=== PATIENT | female | born 1975 | race Caucasian/White ===

== ENCOUNTER 2016-06-29 22:13 | Emergency (ER) | payer MEDICAID, MEDICARE ==
[~2016-06-29 22:13] MED LIST: DIAZ2TAB PO
[2016-06-29 22:19] VITALS: BP 109/70; PULSE 116; RESP 20; O2SAT 94
--- NOTE | 2016-06-29 23:52 | ED.REPORT ---
HPI-URI / Cough / Cold Date of Service Jun 29, 2016 ED Provider: Naren Ferris MD A 40 year old female with a history of seizures, cancer, smoking, and asthma presents to the ED complaining of cough, fever, and joint pain. She has been experiencing these symptoms for two days, and states that "everything hurts." The pt has not received an influenza vaccination this year. Nursing Notes Stated Complaint: COUGH, FEVER Chief Complaint: FLU/Cold Symptoms Nursing Notes Reviewed: Yes Allergies: Coded Allergies: iodine (Verified Allergy, Severe, Anaphylaxis, 06/24/13) aspirin (Verified Allergy, Mild, Hives, 06/24/13) Codfish (Verified Allergy, Unknown, 10/10/14) Uncoded Allergies: "CILLINS" (Allergy, Mild, Rash, 06/21/13) Scheduled PRN Diazepam (Valium) 2 Mg Tablet 2 MG PO TID PRN PRN For Pain General Time Seen by MD: 23:48 Chief Complaint Other (Cough) Hx Obtained From: Patient Arrived By: Walk-in Onset Occurred: 2 days ago Symptom Duration: Since onset Recent Healthcare: Recent doctor visit, Recent hospitalization Similar Sx Previous: No Past Medical History Past Medical History Seizure disorder Epilepsy Bronchitis Various cancers Cervical cancer, Ovarian cancer, 18 years ago Uterine cancer, 8 years ago Reports: Asthma, Stroke Past Surgical History Vagus nerve simulator placement right arm x2 Reports: Hysterectomy, Tonsillectomy Smoking History Current Every Day Smoker Social History Alcohol Use: Denies alcohol use Drug Use: Denies drug use Ambulatory Status Independent Review of Systems Constitutional: Reports: Fever Respiratory: Reports: Prod cough, clear GI: Denies: Abdominal pain Skin: Denies Rash Complete sys rev & neg: except as marked. Cardiovascular: Denies: Chest pain Musculoskeletal: Reports: Joint pain, Denies: Back pain Physical Exam Initial Vital Signs Vital Signs (First) Date Time Temp Pulse Resp B/P Pulse Ox O2 Delivery O2 Flow Rate FiO2 06/29/16 22:19 39.0 116 20 109/70 94 Room Air Initial VS: Reviewed General/Constitutional: Awake, Alert ENT: Atraumatic, Airway patent, Mucous membranes moist, Pharynx NL Respiratory / Chest: Atraumatic, Breath sounds NL, Breath sounds = bilat, No respiratory distress Head / Eyes: Atraumatic, Normocephalic, PERRL, EOMI Neck: Atraumatic, Supple, Full range of motion Cardiovascular: Heart rate NL, Regular rhythm, Heart sounds NL Abdomen: Atraumatic, Soft, Non-tender Skin: Atraumatic, Color NL, No rash, Warm, Dry Neurologic: Oriented X3, Speech NL, No motor deficits, No sensory deficits Back: Atraumatic, Full range of motion Upper Extremity / MS: Atraumatic, Full range of motion Lower Extremity / Pelvis / MS: Atraumatic, Full range of motion Psychiatric: Affect NL, Mood NL Interpretation & Diagnostics Lab Results Interpretation Test 06/30/16 00:00 Hold Urine Received (Received) Lab Results Interpretation: Influenza A positive Re-Eval/Medical Decision Med Decision/Clinical Course 40-year-old female with multiple day history of influenza-like symptoms found to be influenza A+. She is dehydrated and was given IV fluids. There is no evidence of pneumonia or other serious bacterial illness. Preventative medication was recommended for her 9-month-old contact. Source of Hx: Old records Re-Evaluation/Progress : Time of Eval: 02:59 Patient Status: Condition improved Re-Evaluation/Progress Note: Pt rechecked, who is resting. She is informed of her lab results, diagnosis, and the plan for discharge. The pt understands and agrees with the plan. All questions are addressed at this time. Counseled Regarding: Diagnosis, Need for follow-up, When/why to return to ED Discharge & Departure Impression: Primary Impression: Influenza due to influenza A virus Disposition: Home Discharge Condition All VS Reviewed: Yes Condition: Stable Patient Instructions: Influenza (ED) Additional Instructions: Your symptoms are due to influenza a. Recommend that the 9-month-old grandson gets preventively treated by his pan reclaim processor so he does not get it. Tamiflu antiviral medication, only works if given within the first 24 hours of the illness. Influenza last 7-10 days. Get plenty of rest, drink plenty of fluids. Take Tylenol and/or ibuprofen as needed for aches and pains. Referrals: Marcela Dela Cruz (PCP) Scribe Attestation Portions of this note were transcribed by Marlee Knight. I, Dr. Ferris personally performed the history, physical exam and medical decision-making; I reviewed and confirmed the accuracy of the information in the transcribed note. Signed by: Dieudonne Pedroza, 06/30/2016 and 03:01. copies to: Marcela Dela Cruz Howard L MD Jun 29, 2016 23:52 MARLEE KNIGHT Jun 30, 2016 00:15
[2016-06-30 03:17] VITALS: BP 85/54; PULSE 99; RESP 18; O2SAT 93
== END 2016-06-30 03:18 | disposition home or self-care (01) ==
LOC: SED 22:13
DX: J11.89 Influenza due to unidentified influenza virus with other manifestations (principal); R50.9 Fever, unspecified; J45.909 Unspecified asthma, uncomplicated; F17.200 Nicotine dependence, unspecified, uncomplicated; Z85.43 Personal history of malignant neoplasm of ovary; Z85.42 Personal history of malignant neoplasm of other parts of uterus; Z86.73 Personal history of transient ischemic attack (TIA), and cerebral infarction without residual deficits; Z88.6 Allergy status to analgesic agent; Z91.013 Allergy to seafood

== ENCOUNTER 2016-07-25 11:49 | Emergency (ER) | payer MEDICAID, MEDICARE ==
[~2016-07-25] VITALS: Ht 162.6 cm; Wt 59.1 kg
[2016-07-25 11:52] VITALS: BP 131/88; PULSE 80; RESP 16; O2SAT 98
[2016-07-25] MEDS ORDERED: 0.9% Sodium Chloride 1,000 ML IV ONE (12:18)
--- NOTE | 2016-07-25 12:18 | ED.REPORT ---
HPI-General Illness Date of Service Jul 25, 2016 ED Provider: Richmond Simpson MD Pt is a 41 y/o female w/ a hx of seizure disorder, CVA with residual R sided deficits, vagus nerve stimulator placement, previous ovarian and uterine CA s/p treatment presenting to the ED c/o worsening dizziness and nausea onset 1 week ago. She developed blurry vision and photophobia 3 days ago and today has been experiencing muscle spasms throughout her entire body, headache, shaking, R sided tinnitus, R sided hearing loss. She has no history of similar symptoms. She denies fever, chills, change in focal numbness or weakness, vomiting, abdominal pain, CP, SOB. She denies any new medications. Nursing Notes Stated Complaint: DIZZY Chief Complaint: Neuro Symptoms/ Deficits Nursing Notes Reviewed: Yes Allergies: Coded Allergies: iodine (Verified Allergy, Severe, Anaphylaxis, 06/24/13) aspirin (Verified Allergy, Mild, Hives, 06/24/13) Codfish (Verified Allergy, Unknown, 10/10/14) morphine (Verified Adverse Reaction, Intermediate, "I GET SICKER THAN A DOG", 07/25/16) Uncoded Allergies: "CILLINS" (Allergy, Mild, Rash, 06/21/13) Scheduled PRN Diazepam (Valium) 2 Mg Tablet 2 MG PO TID PRN PRN For Pain General Time Seen by MD: 12:09 Chief Complaint Multip medical complaints Hx Obtained From: Patient Arrived By: Walk-in Sudden in Onset?: No Onset Occurred: 1 week ago Symptom Duration: Since onset Location: : Head Quality: Aching Severity: Current: Moderate Severity: Maximum: Moderate Similar Sx Previous: No Past Medical History Past Medical History 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 Asthma Seizure disorder Epilepsy Bronchitis Various cancers Cervical cancer, Ovarian cancer, 18 years ago Uterine cancer, 8 years ago Past Surgical History Vagus nerve simulator placement right arm x2 Reports: Hysterectomy, Tonsillectomy Smoking History Former Smoker Social History Alcohol Use: Denies alcohol use Drug Use: Denies drug use Ambulatory Status Independent Review of Systems Full Review of Systems Constitutional: Denies: Chills, Fever Ears / Nose / Throat: Reports: Ear ringing right, Hearing loss right Respiratory: Denies: Shortness of breath Cardiovascular: Denies: Chest pain GI: Reports: Nausea, Denies: Abdominal pain, Vomiting Musculoskeletal: Reports: Myalgia Neurologic: Reports: Dizziness, Headache Complete sys rev & neg: except as marked. Physical Exam Vital Signs Vital Signs Date Time Temp Pulse Resp B/P Pulse Ox O2 Delivery O2 Flow Rate FiO2 07/25/16 12:45 35.7 79 16 124/97 100 Room Air 07/25/16 11:52 36 80 16 131/88 98 Room Air Initial VS: Reviewed, Vital signs normal Head / Eyes: Atraumatic, Normocephalic, PERRL ENT: Mucous membranes moist, Conjunctiva normal, No scleral icterus Neck: Supple, Full range of motion Respiratory: Breath sounds normal, Clear to auscultation, No respiratory distress Cardiovascular: Regular rate & rhythm, Heart sounds normal, Intact distal pulses Abdomen / GI: Soft, Non-tender, No guarding, No rebound, No distention Skin: Warm, Dry, No cyanosis General/Constitutional: Awake, Alert, No acute distress, Well appearing, Cooperative, Not toxic appearing When I walked in the room she had no tremors and was easily operating her smartphone. As I entered she set phone down and started having coarse tremors of her bilateral upper extremities Neurologic: Oriented X3, Speech NL, No sensory deficits, CN II - XII intact, Cerebellar NL, Memory NL Diminished header boss strength on the right which is baseline. Neuro exam is completely baseline Interpretation & Diagnostics Lab Results Interpretation Result Diagram: 07/25/16 1235 07/25/16 1235 Test 07/25/16 12:35 White Blood Count 6.7th/mm3 (3.8-10.1) Red Blood Count 4.27mil/mm3 (3.90-5.20) Hemoglobin 13.3g/dL (12.0-15.6) Hematocrit 39.5% (35.0-46.0) Mean Corpuscular Volume 92.5fL (81-100) Mean Corpuscular Hemoglobin 31.1pg (27.0-35.0) Mean Corpuscular Hemoglobin Concent 33.7% (32.0-37.0) Red Cell Distribution Width 12.3% (12.3-15.4) Platelet Count 200bil/L (150-400) Neutrophils (%) (Auto) 57.8% (40-74) Lymphocytes (%) (Auto) 34.6% (14-46) Monocytes (%) (Auto) 6.6% (4-12) Eosinophils (%) (Auto) 0.3% (0-5) Basophils (%) (Auto) 0.4% (0-3) Urine HCG, Qualitative Negative (Negative) Sodium Level 142mEq/L (134-144) Potassium Level 4.2mEq/L (3.5-5.2) Chloride Level 104mEq/L (97-108) Carbon Dioxide Level 24mmol/L (18-29) Blood Urea Nitrogen 7mg/dL (6-24) Creatinine 0.59mg/dL (0.57-1.00) Estimat Glomerular Filtration Rate 160mL/min (>59) Glucose Level 89mg/dL (60-99) Calcium Level 9.2mg/dL (8.5-10.1) Magnesium Level 1.8mg/dL (1.6-2.6) Total Bilirubin 0.2mg/dL (0.0-1.2) Aspartate Amino Transf (AST/SGOT) 16U/L (0-50) Alanine Aminotransferase (ALT/SGPT) 14U/L (0-32) Alkaline Phosphatase 77U/L (25-150) Total Protein 6.8g/dL (6.4-8.4) Albumin 3.9g/dL (3.4-5.0) ECG Interpretation ECG Interpretation: Sinus rhythm rate 77 Time: 13:11 Interpreted by: ED physician Normal ECG Interpretation: Normal rate, Normal sinus rhythm, No acute ischemic changes, Normal QRS, Normal axis, Normal intervals, No change from prior ECGs, Adequate tracing Re-Eval/Medical Decision Med Decision/Clinical Course In summary, the patient is a 41 y/o female w/ a hx of seizure disorder, CVA with residual R sided deficits, vagus nerve stimulator placement, seizure disorder, previous ovarian and uterine CA s/p treatment presenting to the ED c/ o of multiple vague symptoms including lightheadedness, tremors, occasional bilateral blurry vision and muscle aches for the last couple of weeks. Upon arrival, she is afebrile stable vital signs and examination as above. Notably she complains of a resting tremor however when I initially enter the room she is sitting in bed using her phone with ease though chest after me entering she dropped the phone and developed a coarse resting tremor. Myself and additional hospital staff noticed that the tremor was significantly worse with myself, nursing or medical student in the room. Laboratory studies including CBC and CMP were unremarkable and there is no evidence of any significant electrolyte abnormality. She had no acute lateralizing neurologic deficits on examination. In the course of her emergency department stay she reported that her symptoms had completely resolved. Patient was discussed with her neurologist Dr. Conway who requested that we obtain a Tegretol level though felt that she was appropriate for discharge and clinic follow-up. I see no evidence this time of an acute intracranial process, mass lesion, hemorrhage or stroke. I do not feel that neuro imaging studies are indicated. She does report some myalgia type symptoms in the setting of starting a statin and the patient's neurologist has requested that we discontinue this medication. Tegretol levels were sent and are pending at the time of writing this note. She will follow-up with her neurologist in the coming week. Follow- up and return precautions were reviewed in detail and she was discharged in good condition. Time of Eval: 13:54 Patient Status: Condition resolved, Complete relief Re-Evaluation/Progress Note: Pt rechecked. Tremors have resolved. Informed pt of plan for treatment. Pt understands and agrees with plan for treatment. F/U and RTER warnings given. All questions addressed. Consultation : Referral / Consult Name: Jonathan Conway MD Consulted With: Neurology Call Returned at: 13:46 Avionics Systems Engineer: Agrees with eval, Agrees with plan Note: Recommends Carbamazepine level. Recommends she stop her statin and be discharged. Counseled Regarding: Diagnosis, Lab results, Need for follow-up, When/why to return to ED Discharge & Departure Primary Impression: Coarse tremors Additional Impressions: History of stroke Right sided weakness History of seizures Myalgia Statin myopathy Disposition: Home Discharge Condition All VS Reviewed: Yes Condition: Stable Additional Instructions: Thank you for seeking care at emergency room. The cause of your symptoms is unclear but do not seem to be dangerous at this point. Your labs were normal. Our primary goal today in the ED was to evaluate you for any life-threatening conditions. Your evaluation was reassuring. I was able to speak with Dr. Conway today. He recommended we take a Carbamazepine lab level today. This lab result will be available in a couple days. He also recommended you STOP your statin medication. You should follow-up with your primary doctor in the next week. Call Dr. Conway's office to schedule an appointment to be seen. You should return to the ED immediately if you develop one sided numbness or weakness, increased dizziness, severe headache, persistent increased tremors, you pass out, or any other concerning signs or symptoms. Thank you for letting us partake in your care today. Referrals: Marcela Dela Cruz (PCP) Jonathan Conway MD Attestation Portions of this note were transcribed by James Rocha. I, Dr. Simpson personally performed the history, physical exam and medical decision-making; I reviewed and confirmed the accuracy of the information in the transcribed note. Signed by Dieudonne Lucero, 07/25/16 - 1300 copies to: Marcela Dela Cruz; Jonathan Conway MD, Beck O MD Jul 25, 2016 12:18 JAMES ROCHA Jul 25, 2016 12:26
[2016-07-25] MEDS ORDERED: Ondansetron 2 mg/mL 2 mL Inj IVPUSH ONE (12:20)
[2016-07-25 12:45] VITALS: BP 124/97; PULSE 79; RESP 16; O2SAT 100
[2016-07-25 12:50] LABS: BASOPHILS % (AUTO) 0.4 % (0-3); EOSINOPHILS % (AUTO) 0.3 % (0-5); MONOCYTES % (AUTO) 6.6 % (4-12); Mean Corpuscular Hemoglobin 31.1 pg (27.0-35.0); Mean Corpuscular Volume 92.5 fL (81-100); NEUTROPHILS % (AUTO) 57.8 % (40-74); Platelet Count 200 bil/L (150-400)
[2016-07-25 13:18] LABS: Magnesium 1.8 mg/dL (1.6-2.6)
[2016-07-25 13:19] LABS: HCG QUALITATIVE URINE Negative (Negative)
== END 2016-07-25 14:45 | disposition home or self-care (01) ==
LOC: SED 11:49
DX: G25.2 Other specified forms of tremor (principal); R53.1 Weakness; M79.1 Myalgia; G72.89 Other specified myopathies; Z85.41 Personal history of malignant neoplasm of cervix uteri; Z85.43 Personal history of malignant neoplasm of ovary; Z85.42 Personal history of malignant neoplasm of other parts of uterus; Z86.73 Personal history of transient ischemic attack (TIA), and cerebral infarction without residual deficits; Z90.710 Acquired absence of both cervix and uterus; Z87.891 Personal history of nicotine dependence; Z88.5 Allergy status to narcotic agent; Z88.8 Allergy status to other drugs, medicaments and biological substances
CPT/HCPCS: 36415; 80053; 80156; 81025; 82948; 83735; 85025; 93005; 96361; 96374; 99285; J2405; J7030